=== PATIENT | male | born 1970 | race African-American/Black ===

== ENCOUNTER 2017-09-11 19:19 | Emergency (ER) | payer SELFPAY ==
[~2017-09-11] VITALS: Ht 182.9 cm; Wt 99.0 kg
[2017-09-12] MEDS ORDERED: CEPHALEXIN 500MG CAPSULE PO ONE (05:00)
[2017-09-12 05:30] VITALS: BP 134/88
== END 2017-09-12 05:30 | disposition home or self-care (01) ==
LOC: ER 19:19
DX: L03.115 Cellulitis of right lower limb (principal)
CPT/HCPCS: 99283; 99284